=== PATIENT | female | born 1955 | race Caucasian/White ===

== ENCOUNTER 2016-09-05 11:09 | Emergency (ER) | payer OTHER ==
[2016-09-05] MEDS ORDERED: CYCLOBENZAPRINE5 M3 PO (12:56)
[2016-09-05] MEDS ORDERED: NAPROSYN500 MG PO (12:56)
== END 2016-09-05 13:15 | disposition home or self-care (01) ==
LOC: ED 11:09
DX: S22.22XA Fracture of body of sternum, initial encounter for closed fracture (principal); V89.2XXA Person injured in unspecified motor-vehicle accident, traffic, initial encounter; Y93.89 Activity, other specified; Y92.413 State road as the place of occurrence of the external cause; Y99.9 Unspecified external cause status